=== PATIENT | male | born 2000 | race Caucasian/White ===

== ENCOUNTER 2021-06-18 09:50 | Outpatient (CLI) | payer OTHER, SELFPAY ==
--- NOTE | 2021-06-18 10:16 | XRR_ITS ---
PROCEDURE INFORMATION: Exam: XR Chest Exam date and time: 06/18/2021 10:22 AM Age: 21 years old Clinical indication: Anterior, left-sided chest wall pain. Rib pain. TECHNIQUE: Imaging protocol: XR of the chest. Views: 2 views. COMPARISON: No relevant prior studies available. FINDINGS: Lungs: No pulmonary consolidation. Pleural spaces: No pleural effusion. No pneumothorax. Heart/Mediastinum: The cardiac silhouette is unremarkable. No gross evidence of pneumomediastinum. Bones/joints: No gross fracture. XR/XR chest 2V* [id number] IMPRESSION: 1. No acute cardiopulmonary abnormality identified. 2. No acute rib fracture is identified. Consider CT to further assess if there is continued clinical concern.
== END 2021-06-18 09:51 | disposition home or self-care (01) ==
PROVIDERS: Visit Provider Nurse Practitioner Family
DX: R07.81 Pleurodynia (principal)
CPT/HCPCS: 71046